=== PATIENT | male | born 1965 | race Caucasian/White ===

== ENCOUNTER → 2017-12-05 | Outpatient (CLI) | payer OTHER ==
[~2017-12-05] MED LIST: CLON-364 PO; FEXO180T72 PO; GABA-827 PO; GABA800T2 PO; HYDR-3245 PO; HYDR120S6 PO; HYDROCODONE PO; LIDO1ADH5 TD; LOSA1TAB19 PO; OMEP40CA6 PO; TEST200V3 IM; TESTOS; [UNRECOGNIZED DRUG - OTHER] PO
[2017-12-05 08:59] LABS: BASOPHILS # (AUTO) 0.08 x10^3/uL (0-0.1); BASOPHILS % (AUTO) 1 % (0-1); EOSINOPHILS # (AUTO) 0.31 x10^3/uL (0-0.4); EOSINOPHILS % (AUTO) 4 % (1-7); LYMPHOCYTES # (AUTO) 2.29 x10^3/uL (1-3.4); LYMPHOCYTES % (AUTO) 31 % (22-44); MD NO; MEAN CORPUSCULAR HEMOGLOBIN 31.5 pg (27.5-34.5); MEAN CORPUSCULAR HGB CONC 34.2 g/dL (33.2-36.2); MEAN CORPUSCULAR VOLUME 92.2 fL (81-97); MEAN PLATELET VOLUME 9.4 fL (7.4-10.4); MONOCYTES # (AUTO) 0.61 x10^3/uL (0.2-0.8); MONOCYTES % (AUTO) 8 % (2-9); NEUTROPHILS # (AUTO) 4.11 x10^3/uL (1.8-6.8); NEUTROPHILS % (AUTO) 56 % (42-75); PLATELET COUNT 153 x10^3/uL (130-400); RED BLOOD COUNT 6.14 x10^6/uL (4.38-5.82); RED CELL DISTRIBUTION WIDTH 13.7 % (9.4-14.8)
[2017-12-05 09:01] LABS: MICROSCOPIC NOT IND
[2017-12-05 09:03] LABS: HCT (SEDRATE) 56.7 % (39.2-51.8)
[2017-12-05 09:07] LABS: CULTURE INDICATED? NO
[2017-12-05 09:10] LABS: INTERNATIONAL NORMALIZED RATIO 1.09 (0.93-1.1); PROTHROMBIN TIME 11.3 Seconds (9.6-11.5)
[2017-12-05 09:12] LABS: ALANINE AMINOTRANSFERASE 74 U/L (12-78); ANION GAP 8 mmol/L (5-15); CHLORIDE 102 mmol/L (98-107); CREATININE 0.74 mg/dL (0.7-1.3)
[2017-12-05 09:14] LABS: ALKALINE PHOSPHATASE 61 U/L (45-117); BILIRUBIN,TOTAL 1.1 mg/dL (0.2-1.0); TOTAL PROTEIN 7.1 g/dL (6.4-8.2)
== END | disposition home or self-care (01) ==
LOC: STAR 07:40
PROVIDERS: ATTEND Orthopaedic Surgery Orthopaedic Surgery of the Spine
DX: Z01.818 Encounter for other preprocedural examination (principal); M47.26 Other spondylosis with radiculopathy, lumbar region
CPT/HCPCS: 36415; 71046; 80053; 80074; 81003; 85025; 85610; 85651; 85730; 87806; 93005; G0475

== ENCOUNTER → 2018-03-25 | Outpatient (CLI) | payer OTHER ==
[~2018-03-25] MED LIST changes: +ACET650S21 PO; +GABA400C PO; +IMIP25TA3 PO; +NITR100C56 PO
[2018-03-25 10:49] LABS: HCT (SEDRATE) 47.7 % (39.2-51.8)
[2018-03-25 10:50] LABS: BASOPHILS # (AUTO) 0.04 x10^3/uL (0-0.1); BASOPHILS % (AUTO) 1 % (0-1); EOSINOPHILS # (AUTO) 0.25 x10^3/uL (0-0.4); EOSINOPHILS % (AUTO) 4 % (1-7); LYMPHOCYTES # (AUTO) 1.66 x10^3/uL (1-3.4); LYMPHOCYTES % (AUTO) 26 % (22-44); MD NO; MEAN CORPUSCULAR HEMOGLOBIN 31.6 pg (27.5-34.5); MEAN CORPUSCULAR HGB CONC 35.2 g/dL (33.2-36.2); MEAN CORPUSCULAR VOLUME 89.6 fL (81-97); MEAN PLATELET VOLUME 9.6 fL (7.4-10.4); MONOCYTES # (AUTO) 0.41 x10^3/uL (0.2-0.8); MONOCYTES % (AUTO) 7 % (2-9); NEUTROPHILS # (AUTO) 3.96 x10^3/uL (1.8-6.8); NEUTROPHILS % (AUTO) 63 % (42-75); PLATELET COUNT 185 x10^3/uL (130-400); RED BLOOD COUNT 5.28 x10^6/uL (4.38-5.82); RED CELL DISTRIBUTION WIDTH 14.1 % (9.4-14.8)
[2018-03-25 10:54] LABS: INTERNATIONAL NORMALIZED RATIO 1.05 (0.93-1.1); PROTHROMBIN TIME 10.9 Seconds (9.6-11.5)
[2018-03-25 10:57] LABS: ALBUMIN 3.9 g/dL (3.4-5.0); ANION GAP 4 mmol/L (5-15); CHLORIDE 102 mmol/L (98-107)
[2018-03-25 11:02] LABS: ALANINE AMINOTRANSFERASE 127 U/L (12-78); ALKALINE PHOSPHATASE 108 U/L (45-117); BILIRUBIN,TOTAL 1.2 mg/dL (0.2-1.0); CREATININE 0.71 mg/dL (0.7-1.3); TOTAL PROTEIN 7.1 g/dL (6.4-8.2)
[2018-03-25 11:08] LABS: MICROSCOPIC NOT IND
[2018-03-25 11:22] LABS: CULTURE INDICATED? NO
== END | disposition home or self-care (01) ==
LOC: STAR 09:34
PROVIDERS: ATTEND Orthopaedic Surgery Orthopaedic Surgery of the Spine
DX: Z01.818 Encounter for other preprocedural examination (principal); M54.16 Radiculopathy, lumbar region; M48.061 Spinal stenosis, lumbar region without neurogenic claudication
CPT/HCPCS: 36415; 71046; 80053; 80074; 81003; 85025; 85610; 85651; 85730; 87806; 93005; G0475

== ENCOUNTER 2018-04-01 05:34 | Inpatient (IN) | payer OTHER ==
[~2018-04-01] VITALS: Ht 165.1 cm; Wt 110.0 kg
[2018-04-01] MEDS ORDERED: LACTATED RINGERS 1,000 ML IV SCH (06:36)
[2018-04-01 06:40] VITALS: BP 147/76
[2018-04-01] MEDS ORDERED: BUPIVACAINE/PF-EPI 0.5% 1:200K ONE (06:49)
[2018-04-01] MEDS ORDERED: INDIGO CARMINE 0.8%, 5ML ONE (06:49)
[2018-04-01] MEDS ORDERED: EPINEPHRINE 1 MG/ML, 1ML ONE (06:50)
[2018-04-01] MEDS ORDERED: THROMBIN 5,000 UNIT VIAL TP ONE (06:50)
[2018-04-01] MEDS ORDERED: BACITRACIN 50,000 UNIT ONE (06:50)
[2018-04-01] MEDS ORDERED: VANCOMYCIN 1,000 MG ONE (06:50)
[2018-04-01] MEDS ORDERED: LIDOCAINE/PF 1%, 30ML ONE (06:50)
[2018-04-01] MEDS ORDERED: ONDANSETRON ODT 8 MG ONE (06:55)
[2018-04-01] MEDS ORDERED: MIDAZOLAM 1 MG/ML, 2ML ONE (06:55)
[2018-04-01] MEDS ORDERED: SCOPOLAMINE PATCH, 1.5MG PATCH.TD72 TD ONE ×2 (06:55→07:00)
[2018-04-01] MEDS ORDERED: FENTANYL PF 250 MCG/5ML ONE (06:56)
[2018-04-01] MEDS ORDERED: LIDOCAINE GEL 2%, 5ML ONE (06:56)
[2018-04-01] MEDS ORDERED: ROCURONIUM 10MG/ML,5ML ONE (06:58)
[2018-04-01] MEDS ORDERED: PROPOFOL 10 MG/ML, 20ML ONE (06:58)
[2018-04-01] MEDS ORDERED: LIDOCAINE-MPF 1%, 2ML INFIL ONE (07:00)
[2018-04-01] MEDS ORDERED: ONDANSETRON ODT 8 MG PO ONE (07:00)
[2018-04-01] MEDS ORDERED: DEXAMETHASONE 4 MG/ML, 1ML ONE ×3 (07:52→08:31)
[2018-04-01] MEDS ORDERED: NEOSTIGMINE 1 MG/ML, 10ML ONE ×2 (07:52→10:46)
[2018-04-01] MEDS ORDERED: SUCCINYLCHOLINE 20 MG/ML, 10ML ONE (07:52)
[2018-04-01] MEDS ORDERED: GLYCOPYRROLATE 0.2MG/1ML, 5ML ONE (07:52)
[2018-04-01] MEDS ORDERED: CEFAZOLIN 1,000 MG ONE ×2 (08:31)
[2018-04-01] MEDS ORDERED: PHENYLEPHRINE 10 MG/ML ONE (08:39)
[2018-04-01] MEDS ORDERED: ONDANSETRON ODT 8 MG PO PRN (09:00)
[2018-04-01] MEDS ORDERED: ALBUTEROL SULFATE 2.5 MG/3 ML NPPB PRN (09:00)
[2018-04-01] MEDS ORDERED: PROMETHAZINE 25 MG/ML, 1ML IV PRN (09:00)
[2018-04-01] MEDS ORDERED: OXYcodone 5 MG/5 ML ORAL.SOL UDC PO PRN (09:00)
[2018-04-01] MEDS ORDERED: LABETALOL 5MG/ML, 20ML IV PRN (09:00)
[2018-04-01] MEDS ORDERED: FENTANYL PF 100 MCG/2ML IV PRN (09:00)
[2018-04-01] MEDS ORDERED: PROMETHAZINE 12.5 MG SUPP PR PRN (09:00)
[2018-04-01] MEDS ORDERED: EPHEDRINE 50 MG/ML, 1ML IM PRN (09:00)
[2018-04-01] MEDS ORDERED: MEPERIDINE/PF 25MG/0.5ML IVPush PRN (09:00)
[2018-04-01] MEDS ORDERED: LORazepam 2 MG/ML, 1ML IVPush PRN (09:00)
[2018-04-01] MEDS ORDERED: MIDAZOLAM 1 MG/ML, 2ML IV PRN (09:00)
[2018-04-01] MEDS ORDERED: ONDANSETRON 2MG/ML, 2ML IV PRN ×2 (09:00→14:30)
[2018-04-01] MEDS ORDERED: hydrALAzine 20 MG/ML, 1ML IV PRN (09:00)
[2018-04-01] MEDS ORDERED: FENTANYL PF 100 MCG/2ML ONE (10:06)
[2018-04-01] MEDS ORDERED: GLYCOPYRROLATE 0.4 MG/2 ML, 2ML ONE (10:46)
[2018-04-01] MEDS ORDERED: ONDANSETRON 2MG/ML, 2ML ONE (10:46)
[2018-04-01] MEDS ORDERED: OXYcodone 5 MG/5 ML ORAL.SOL UDC ONE (11:56)
[2018-04-01] MEDS ORDERED: HYDROmorphone 2 MG/ML, 1ML ONE (11:56)
[2018-04-01] MEDS: HYDROmorphone 1 MG/ML, 1ML IV PRN ×3 (12:00→12:23)
[2018-04-01] MEDS ORDERED: DIAZEPAM 5 MG/ML, 2ML IV PRN (12:30)
[2018-04-01 13:25] VITALS: BP 96/59
[2018-04-01] MEDS: LABETALOL 5MG/ML, 20ML IV SCH ×2 (14:22→22:26)
[2018-04-01 14:26] VITALS: BP 92/60
[2018-04-01] MEDS ORDERED: HYDROcodone/APAP 5/325 TABLET PO PRN (14:30)
[2018-04-01] MEDS ORDERED: OXYcodone/APAP 5/325MG TABLET PO PRN (14:30)
[2018-04-01] MEDS: D5%-0.9% NACL+KCL 20MEQ 1,000 ML IV SCH ×2 (15:12→22:26)
[2018-04-01] MEDS: CEFAZOLIN PMX 1GM/50ML 50 ML IVPB SCH (16:08)
[2018-04-01 19:44] VITALS: BP 97/58
[2018-04-01] MEDS ORDERED: HYDROCODONE PO PRN (22:00)
[2018-04-01] MEDS: GABAPENTIN 300 MG CAPSULE HOMEMEDPO SCH (22:38)
[2018-04-02] MEDS: CEFAZOLIN PMX 1GM/50ML 50 ML IVPB SCH (00:13)
[2018-04-02 00:17] VITALS: BP 100/64
[2018-04-02] MEDS: DIAZEPAM 5 MG TABLET PO PRN ×2 (04:28→12:18)
[2018-04-02] MEDS: GABAPENTIN 300 MG CAPSULE HOMEMEDPO SCH ×2 (04:29→10:23)
[2018-04-02 04:44] VITALS: BP 98/53
[2018-04-02 06:45] VITALS: BP 107/68
[2018-04-02] MEDS: D5%-0.9% NACL+KCL 20MEQ 1,000 ML IV SCH ×2 (07:13→10:24)
[2018-04-02] MEDS: LABETALOL 5MG/ML, 20ML IV SCH ×2 (07:13→10:24)
[2018-04-02] MEDS ORDERED: SENNA/DOCUSATE TABLET PO SCH (09:00)
[2018-04-02] MEDS ORDERED: CEFAZOLIN PMX 1GM/50ML 50 ML IV ONE (09:30)
[2018-04-02 13:06] VITALS: BP 101/64
== END 2018-04-02 13:45 | disposition home or self-care (01) | DRG 41 ==
LOC: OUT 05:34 → 4NOR 13:15 → OUT 13:27 → 4NOR 13:27
PROVIDERS: ADMIT Orthopaedic Surgery Orthopaedic Surgery of the Spine; ATTEND Orthopaedic Surgery Orthopaedic Surgery of the Spine
PROC: 0JPT0MZ Removal of Stimulator Generator from Trunk Subcutaneous Tissue and Fascia, Open Approach (ICD-10-PCS; 2018-04-01)
PROC: 0JH70MZ Insertion of Stimulator Generator into Back Subcutaneous Tissue and Fascia, Open Approach (ICD-10-PCS; principal; 2018-04-01 07:30)
DX: T85.890A Other specified complication of nervous system prosthetic devices, implants and grafts, initial encounter (principal); Z68.41 Body mass index [BMI] 40.0-44.9, adult; Y92.89 Other specified places as the place of occurrence of the external cause; Y83.1 Surgical operation with implant of artificial internal device as the cause of abnormal reaction of the patient, or of later complication, without mention of misadventure at the time of the procedure; M41.9 Scoliosis, unspecified; M54.9 Dorsalgia, unspecified; G89.4 Chronic pain syndrome; Z90.49 Acquired absence of other specified parts of digestive tract; E66.9 Obesity, unspecified; I10 Essential (primary) hypertension; E78.00 Pure hypercholesterolemia, unspecified; Z88.8 Allergy status to other drugs, medicaments and biological substances
CPT/HCPCS: 72100; J3490; J0171; J0690; J1100; J1170; J2250; J2270; J2405; J2704; J2710; J3010; J3360; J3370; Q0162; C1883; J0330; J2370; J3480; J7120

== ENCOUNTER 2019-06-19 20:39 | Observation (INO) | payer MEDICARE, OTHER ==
[~2019-06-19] VITALS: Ht 165.1 cm; Wt 110.8 kg
[~2019-06-19 20:39] MED LIST changes: -CLON-364 PO; +CLON0.5T11 PO; -GABA800T2 PO; +GABA800T5 PO; +OMEP40CA42 PO; -OMEP40CA6 PO
[2019-06-19] MEDS ORDERED: METOCLOPRAMIDE 5 MG/ML, 2ML ONE (21:50)
[2019-06-19 21:58] LABS: BASOPHILS % (AUTO) 0 % (0-1); EOSINOPHILS # (AUTO) 0.26 x10^3/uL (0-0.4); EOSINOPHILS % (AUTO) 2 % (1-7); LYMPHOCYTES # (AUTO) 1.09 x10^3/uL (1-3.4); LYMPHOCYTES % (AUTO) 8 % (22-44); MD NO; MEAN CORPUSCULAR HEMOGLOBIN 32.3 pg (27.5-34.5); MEAN CORPUSCULAR HGB CONC 33.4 g/dL (33.2-36.2); MEAN CORPUSCULAR VOLUME 96.8 fL (81-97); MEAN PLATELET VOLUME 9.2 fL (7.4-10.4); MONOCYTES # (AUTO) 0.61 x10^3/uL (0.2-0.8); MONOCYTES % (AUTO) 4 % (2-9); NEUTROPHILS # (AUTO) 12.09 x10^3/uL (1.8-6.8); NEUTROPHILS % (AUTO) 86 % (42-75); PLATELET COUNT 212 x10^3/uL (130-400); RED BLOOD COUNT 6.04 x10^6/uL (4.38-5.82); RED CELL DISTRIBUTION WIDTH 13.8 % (9.4-14.8)
[2019-06-19] MEDS ORDERED: METOCLOPRAMIDE 5 MG/ML, 2ML IVPush ONE (22:00)
[2019-06-19] MEDS ORDERED: HYDROmorphone 2 MG/ML, 1ML IVPush PRN (22:00)
--- NOTE | 2019-06-19 22:00 | NUR ---
PER ER MD CHOI, NO NEED FOR STOOL STUDIES.
[2019-06-19 22:10] LABS: ALANINE AMINOTRANSFERASE 24 U/L (12-78); ALBUMIN 3.6 g/dL (3.4-5.0); ANION GAP 4 mmol/L (5-15); CALCIUM 7.9 mg/dL (8.5-10.1); CHLORIDE 104 mmol/L (98-107)
--- NOTE | 2019-06-19 22:10 | NUR ---
SENT FROM [facility], POLYCYTHEMIA DX. WENT THERE TONIGHT FOR N/V/D AND ABD PAIN FOR THREE DAYS. HAS IV IN PLACE, REC 2L IV FLUID WELL MORPHINE AND ZOFRAN IV. WAS GIVE TWO TABS LOMOTIL
[2019-06-19 22:13] LABS: ALKALINE PHOSPHATASE 74 U/L (45-117); BILIRUBIN,TOTAL 1.9 mg/dL (0.2-1.0); CREATININE 0.82 mg/dL (0.7-1.3); TOTAL PROTEIN 6.3 g/dL (6.4-8.2)
[2019-06-19] MEDS ORDERED: HYDROmorphone 1 MG/ML, 1ML VIAL ONE (22:24)
--- NOTE | 2019-06-19 22:31 | NUR ---
PT RESTING ON GURNEY. MEDICATED FOR PAIN PER EMAR. PT STATES PAIN IN ABD HAS IMPROVED FROM A 8/10 TO 0/10.
[2019-06-19] MEDS ORDERED: SODIUM CHLORIDE 0.9% 1,000ML IVBOLUS ONE (23:00)
--- NOTE | 2019-06-19 23:15 | NUR ---
ER MD CHOI IN TO DISCUSS POC. PT TO BE ADMITTED TO HOSPITAL. QUESTIONS ANSWERED.
[2019-06-19] MEDS ORDERED: ONDANSETRON 2MG/ML, 2ML IVPush PRN (23:30)
--- NOTE | 2019-06-19 23:59 | NUR ---
REPORT GIVEN TO SUHAS ROBERTSON
[2019-06-20] MEDS ORDERED: OXYcodone IR 5MG TABLET PO PRN
[2019-06-20 00:30] VITALS: BP 105/68
[2019-06-20] MEDS: SODIUM CHLORIDE 0.9% 1,000 ML IV SCH ×3 (00:30→20:11)
[2019-06-20 02:20] LABS: OCCULT BLOOD NEGATIVE (NEGATIVE); STOOL FOR LEUKOCYTES RARE (0-1/HPF) (NEGATIVE)
[2019-06-20 02:30] VITALS: BP 119/64
[2019-06-20 04:35] LABS: BASOPHILS # (AUTO) 0.03 x10^3/uL (0-0.1); BASOPHILS % (AUTO) 0 % (0-1); EOSINOPHILS % (AUTO) 2 % (1-7); LYMPHOCYTES # (AUTO) 1.24 x10^3/uL (1-3.4); LYMPHOCYTES % (AUTO) 11 % (22-44); MD NO; MEAN CORPUSCULAR HEMOGLOBIN 32.2 pg (27.5-34.5); MEAN CORPUSCULAR HGB CONC 33.7 g/dL (33.2-36.2); MEAN CORPUSCULAR VOLUME 95.7 fL (81-97); MONOCYTES # (AUTO) 0.64 x10^3/uL (0.2-0.8); MONOCYTES % (AUTO) 5 % (2-9); NEUTROPHILS # (AUTO) 9.66 x10^3/uL (1.8-6.8); NEUTROPHILS % (AUTO) 82 % (42-75); PLATELET COUNT 200 x10^3/uL (130-400)
[2019-06-20 04:45] LABS: ANION GAP 4 mmol/L (5-15); CALCIUM 7.6 mg/dL (8.5-10.1); CHLORIDE 105 mmol/L (98-107); CHOLESTEROL, TOTAL 95 mg/dL (140-239); CREATININE 0.83 mg/dL (0.7-1.3); TRIGLYCERIDES 96 mg/dL (50-200); VLDL CHOLESTEROL 19 mg/dL (0-25)
[2019-06-20 04:46] LABS: CHOL/HDL RATIO 3.4; HDL CHOL % 29 % (26-37); HDL CHOLESTEROL (DIRECT) 28 mg/dL (40-60); LDL CHOLESTEROL,CALCULATED 48 mg/dL (54-169); LDL/HDL RATIO 1.7 (0.5-3.0)
[2019-06-20] MEDS: GABAPENTIN 400 MG CAPSULE PO SCH ×2 (05:14→11:00)
[2019-06-20] MEDS: PANTOPRAZOLE 40 MG IV IVPush SCH (07:44)
[2019-06-20] MEDS: ACETAMINOPHEN 325 MG TABLET PO PRN ×2 (07:45→21:19)
[2019-06-20] MEDS: IMIPRAMINE 25 MG TABLET PO SCH (07:45)
[2019-06-20 07:55] VITALS: BP 118/81
[2019-06-20 08:28] LABS: INTERNATIONAL NORMALIZED RATIO 1.1 (0.93-1.1); PROTHROMBIN TIME 11.5 Seconds (9.6-11.5)
[2019-06-20 08:57] LABS: CLOSTRIDIUM DIFFICILE ANTIGEN NEGATIVE; CLOSTRIDIUM DIFFICILE TOXIN NEGATIVE (Negative)
[2019-06-20 14:13] VITALS: BP 112/77
[2019-06-20] MEDS ORDERED: POTASSIUM CHLORIDE 20 MEQ TAB.ER.PRT PO ONE (16:00)
[2019-06-20] MEDS: GABAPENTIN 300 MG CAPSULE PO SCH ×2 (16:34→21:19)
[2019-06-20 18:44] VITALS: BP 143/82
[2019-06-21 00:41] VITALS: BP 126/80
[2019-06-21 05:01] LABS: BASOPHILS # (AUTO) 0.02 x10^3/uL (0-0.1); BASOPHILS % (AUTO) 0 % (0-1); EOSINOPHILS # (AUTO) 0.18 x10^3/uL (0-0.4); EOSINOPHILS % (AUTO) 2 % (1-7); LYMPHOCYTES # (AUTO) 1.43 x10^3/uL (1-3.4); LYMPHOCYTES % (AUTO) 18 % (22-44); MD NO; MEAN CORPUSCULAR HEMOGLOBIN 32.7 pg (27.5-34.5); MEAN CORPUSCULAR VOLUME 96.1 fL (81-97); MEAN PLATELET VOLUME 9.4 fL (7.4-10.4); MONOCYTES # (AUTO) 0.65 x10^3/uL (0.2-0.8); MONOCYTES % (AUTO) 8 % (2-9); NEUTROPHILS # (AUTO) 5.67 x10^3/uL (1.8-6.8); NEUTROPHILS % (AUTO) 71 % (42-75); PLATELET COUNT 190 x10^3/uL (130-400); RED BLOOD COUNT 5.23 x10^6/uL (4.38-5.82); RED CELL DISTRIBUTION WIDTH 13.9 % (9.4-14.8)
[2019-06-21 05:21] LABS: ANION GAP 6 mmol/L (5-15); CALCIUM 7.5 mg/dL (8.5-10.1); CHLORIDE 106 mmol/L (98-107)
[2019-06-21 05:23] LABS: CREATININE 0.73 mg/dL (0.7-1.3)
[2019-06-21] MEDS: GABAPENTIN 300 MG CAPSULE PO SCH ×2 (05:45→12:34)
[2019-06-21] MEDS: SODIUM CHLORIDE 0.9% 1,000 ML IV SCH (06:09)
[2019-06-21 06:45] VITALS: BP 129/83
[2019-06-21] MEDS ORDERED: POTASSIUM CHLORIDE 20 MEQ TAB.ER.PRT PO ONE (10:30)
[2019-06-21] MEDS: PANTOPRAZOLE 40 MG IV IVPush SCH (10:33)
[2019-06-21] MEDS: IMIPRAMINE 25 MG TABLET PO SCH (10:33)
== END 2019-06-21 12:46 | disposition home or self-care (01) ==
LOC: ED 23:14 → EDIP 23:50 → INTOOBSV 23:50 → 4NW 06-20 00:09
PROVIDERS: ADMIT Internal Medicine; ATTEND Internal Medicine
DX: R19.7 Diarrhea, unspecified (principal); D75.1 Secondary polycythemia; E66.9 Obesity, unspecified; E86.0 Dehydration; G47.33 Obstructive sleep apnea (adult) (pediatric); G89.4 Chronic pain syndrome; I10 Essential (primary) hypertension; K76.0 Fatty (change of) liver, not elsewhere classified; Z79.891 Long term (current) use of opiate analgesic; Z88.8 Allergy status to other drugs, medicaments and biological substances; Z79.899 Other long term (current) drug therapy; R11.2 Nausea with vomiting, unspecified
CPT/HCPCS: 36415; 71046; 80048; 80053; 80061; 82272; 82668; 83605; 83690; 85025; 85610; 87046; 87324; 87427; 89055; 96361; 96374; 96375; 96376; 99285; C9113; G0378; J1170; J2765; J7030

== ENCOUNTER → 2020-09-26 | Outpatient (CLI) | payer MEDICARE ==
[~2020-09-26] MED LIST changes: +CLON-364 PO; -CLON0.5T11 PO
== END | disposition home or self-care (01) ==
LOC: RAD 11:31
PROVIDERS: ATTEND Family Medicine
DX: M25.562 Pain in left knee (principal)